=== PATIENT | female | born 1990 | race Caucasian/White ===

== ENCOUNTER 2019-02-09 06:13 | Inpatient (IN) ==
[2019-02-09] MEDS ORDERED: D5LR 1L W PITOCIN 10 UNITS/L 10 UNITS/1,000 ML BAG IV ONE (06:30)
[2019-02-09] MEDS ORDERED: D5 1/2 NS 1000 ML 1,000 ML IV ONE ×2 (06:30→13:30)
[2019-02-09] MEDS ORDERED: NUBAIN INJ 200 MG VIAL MULTIDOSE IVP PRN (06:58)
[2019-02-09] MEDS ORDERED: PHENERGAN INJ 25 MG IM PRN ×2 (06:58→15:20)
[2019-02-09] MEDS ORDERED: MORPHINE SULFATE INJ 2 MG INJ IVP PRN (06:58)
[2019-02-09] MEDS ORDERED: PITOCIN IVP ONE (06:58)
[2019-02-09] MEDS ORDERED: D5LR 1L W PITOCIN 10 UNITS/L 10 UNITS/1,000 ML BAG IV PRN (06:58)
[2019-02-09] MEDS ORDERED: REGLAN INJ 10 MG VIAL IVP PRN (06:58)
[2019-02-09] MEDS ORDERED: FENTANYL INJ 100 mcg ONE (08:45)
[2019-02-09] MEDS ORDERED: LR 1000 ML IV 1,000 ML IV ONE (08:45)
[2019-02-09] MEDS ORDERED: NAROPIN EPIDURAL 0.2% + FENTANYL 90MCG 60 ML EPI ONE (08:46)
[2019-02-09] MEDS ORDERED: REGLAN INJ 10 MG VIAL ONE (11:38)
[2019-02-09] MEDS: D5 1/2 NS 1000 ML 1,000 ML IV SCH ×3 (11:43→23:39)
[2019-02-09] MEDS ORDERED: PITOCIN ONE (13:20)
[2019-02-09] MEDS ORDERED: D5 1/2 NS 1L W PITOCIN 20 UNITS/L 20 UNITS/1,000 ML BAG IV ONE ×2 (13:20→23:16)
[2019-02-09] MEDS ORDERED: ZOFRAN INJ 4 MG VIAL ONE (14:40)
[2019-02-09] MEDS ORDERED: DERMOPLAST SPRAY TOP PRN (15:20)
[2019-02-09] MEDS ORDERED: MOTRIN TAB 800 MG PO PRN (15:20)
[2019-02-09] MEDS ORDERED: ADACEL or BOOSTRIX TDaP VACCINE IM ONE ×2 (15:20→18:40)
[2019-02-09] MEDS: D5 1/2 NS 1000 ML 1,000 ML with PITOCIN 20 UNITS IV SCH ×4 (18:34→23:27)
[2019-02-10] MEDS: D5 1/2 NS 1000 ML 1,000 ML with PITOCIN 20 UNITS IV SCH ×2 (01:05)
[2019-02-10 05:28] LABS: HEMATOCRIT 29.8 % (36.0-47.0); HEMOGLOBIN 10.5 g/dL (12.0-16.0)
[2019-02-10] MEDS: D5 1/2 NS 1000 ML 1,000 ML IV SCH (07:01)
[2019-02-10] MEDS ORDERED: PRENATAL PLUS PO SCH (09:00)
[2019-02-10 17:19] VITALS: BP 104/56
== END 2019-02-10 18:05 | disposition home or self-care (01) | DRG 807 ==
LOC: LD 06:13 → MED/SURG 15:23
PROVIDERS: ADMIT Obstetrics & Gynecology; ATTEND Obstetrics & Gynecology
DX: O80 Encounter for full-term uncomplicated delivery; Z3A.39 39 weeks gestation of pregnancy; Z23 Encounter for immunization; Z37.0 Single live birth
CPT/HCPCS: 36415; 59409; 80048; 80307; 81001; 85014; 85018; 85025; 86592; 86850; 86900; 86901; 87086; 90715; A4216; A4222; S0197; G0434; J2405; J2590; J2765; J3010; J7120; S5010